=== PATIENT | female | born 1960 | race Two or more races ===

== ENCOUNTER → 2024-12-06 | Outpatient (CLI) | payer BC, SELFPAY ==
--- NOTE | 2024-12-06 16:30 | XR_ITS ---
Examination: CT chest, without intravenous contrast. Sagittal and coronal 2-D reconstructions. Exam date and time: December 06, 2024 1613 hours Comparison June 11, 2024 INDICATIONS: Diagnosis coccidiomycosis with history lung nodules CTDI:vol (mGy) 10.7 DLP: (mGycm) 368 Technique: Multiple 3.0 mm axial sections of the chest to been obtained. Bone and lung density settings are obtained. Sagittal and coronal 2-D reconstructions have been obtained. Low dose protocols were performed. One or more of the following dose reduction techniques were used; automated exposure control, adjustment of the mA and/or KV according to patient size, use of iterative reconstruction technique. Findings: 10 mm calcified left thyroid nodule No thoracic aortic aneurysm dilatation Pulmonary artery segments do not show significant enlargement No paratracheal tracheobronchial or bronchopulmonary adenopathy Calcified scarring in the left upper lobe anteriorly is stable as well as stable tiny subcentimeter bilateral pulmonary nodules No pneumonia or pulmonary edema IMPRESSION: Stable calcified mass in the left upper lobe Stable multiple bilateral pulmonary nodules No pneumonia identified Recommend 6 month follow-up PA lateral chest x-ray
== END | disposition home or self-care (01) ==
LOC: CCTX 15:59
PROVIDERS: PCP Physician Assistant; Referring Provider Internal Medicine Hematology & Oncology; Visit Provider Internal Medicine Hematology & Oncology
DX: R91.8 Other nonspecific abnormal finding of lung field (principal); C50.512 Malignant neoplasm of lower-outer quadrant of left female breast
CPT/HCPCS: 71250

== ENCOUNTER → 2024-12-23 | Outpatient (CLI) | payer BC, SELFPAY ==
--- NOTE | 2024-12-23 11:30 | XR_ITS ---
Examination: Thyroid sonography complete Technique: Grayscale sonographic images thyroid lobes with color flow analysis Exam date and time: December 23, 2024 1150 hrs. Indications: History fine-needle aspiration of isthmus thyroid nodule August 10, 2024 Right thyroid upper pole nodule 5 mm Isthmus nodule 14 mm mid pole left thyroid nodule 7 mm on thyroid sonogram 07/21/2024 Findings: Right thyroid 5.7 cm Multiple nodules, the largest in the midpole 5 mm Isthmus nodule 1.3 x 1.2 cm Left thyroid 4.8 cm Midpole nodule 6 x 5 mm Impression: Thyroid nodules as above
[2024-12-23 13:09] LABS: Basophils % (Auto) 0 % (0-2.5); Eosinophils # (Auto) 0.1 Thou/mm3 (0.0-0.5); Eosinophils % (Auto) 2 % (0-10); Hematocrit 40.1 % (36.0-46.0); Hemoglobin 13.4 g/dL (12.0-16.0); Immature Granulocytes % (Auto) 0 % (0-0); Immature Granulocytes Auto 0.01 Thou/mm3 (0.00-0.00); Lymphocytes # (Auto) 1.3 Thou/mm3 (1.0-4.8); Lymphocytes % (Auto) 24 % (10-50); Mean Corpuscular HGB Conc 33.4 g/dl (31.0-37.0); Mean Corpuscular Hemoglobin 28.9 pg (25.0-35.0); Mean Corpuscular Volume 86 fL (80-100); Monocytes # (Auto) 0.4 Thou/mm3 (0.0-0.8); Monocytes % (Auto) 7 % (0-12); Neutrophils # (Auto) 3.4 Thou/mm3 (1.8-7.7); Neutrophils % (Auto) 66 % (37-80); Nucleated Red Blood Cell % 0 /100 WBC (0); Platelet Count 176 Thou/mm3 (140-440); RDW Standard Deviation 41.2 fL (36.4-46.3); Red Blood Count 4.64 Miln/mm3 (4.00-5.20); White Blood Count 5.2 Thou/mm3 (3.6-11.0)
[2024-12-23 13:34] LABS: Alanine Aminotransferase 31 U/L (10-49); Albumin, Serum 4.5 gm/dL (3.4-4.8); Albumin/Globulin Ratio 1.9 (1.2-2.2); Alkaline Phosphatase 79 U/L (46-116); Anion Gap 9 (7-16); Aspartate Amino Transferase 25 U/L (0-34); BUN/Creatinine Ratio 19 Ratio (12-20); Bilirubin,Total 0.6 mg/dL (0.3-1.2); Blood Urea Nitrogen 13 mg/dL (9-23); Calcium 10.2 mg/dL (8.3-10.6); Calcium (Corrected) 10.2 mg/dL (8.5-10.1); Carbon Dioxide 28.3 mMol/L (20.0-31.0); Chloride 105 mMol/L (98-107); Creatinine (Component) 0.7 mg/dL (0.6-1.3); Globulin 2.4 gm/dL (2.3-3.5); Glucose 99 mg/dL (74-106); Osmolality,Calculated 283 (275-295); Potassium 4.4 mMol/L (3.4-5.1); Sodium 142 mMol/L (136-145); Total Protein 6.9 gm/dL (5.7-8.2); eGFR > 60 See Note
[2024-12-23 14:00] LABS: CA 15-3 8.8 U/mL (<32.4)
== END | disposition home or self-care (01) ==
LOC: CDIM 11:35 → COPL 12:17
PROVIDERS: PCP Physician Assistant; Referring Provider Physician Assistant; Visit Provider Physician Assistant
DX: E04.2 Nontoxic multinodular goiter (principal); C50.512 Malignant neoplasm of lower-outer quadrant of left female breast
CPT/HCPCS: 36415; 76536; 80053; 85025; 86300

== ENCOUNTER → 2025-01-03 | Outpatient (CLI) | payer BC, SELFPAY ==
--- NOTE | 2025-01-03 | XR_ITS ---
Examination: Shoulder,right, 3 views Technique: Shoulder AP internal rotation, AP external rotation, Y view shoulder, 3 views Exam date and time :January 03, 2025 0811 hrs. Indications: Right shoulder pain beginning 6 months ago Comparison: November 10, 2023 Findings: Moderate osteopenia No fracture or shoulder dislocation Mild narrowing glenohumeral joint Mild osteoarthritis acromioclavicular joint Impression: Mild osteoarthritis
== END | disposition home or self-care (01) ==
LOC: CDIM 07:10
PROVIDERS: PCP Family Medicine; Referring Provider Physician Assistant; Visit Provider Physician Assistant
DX: M19.011 Primary osteoarthritis, right shoulder (principal)
CPT/HCPCS: 73030

== ENCOUNTER → 2025-02-16 | Outpatient (CLI) | payer BC, SELFPAY ==
--- NOTE | 2025-02-16 11:00 | XR_ITS ---
Examination: Screening digital mammography, bilateral Computer aided detection 3-D breast Tomosynthesis, bilateral Date and time of exam: February 16, 2025 10:50 AM Compared to mammograms dating to August 28, 2020 Indication: Screening Technique: Nonmagnified MLO, CC views of the breasts to been obtained, reconstructed from 3-D Tomosynthesis images. R2 computer aided detection program utilized for evaluation of suspicious masses and/or abnormal calcifications. 3-D Tomosynthesis images obtained. Findings: The breasts are heterogeneously dense, which may obscure small masses Extensive architectural distortion left breast again noted consistent with patient's history treated left breast cancer, including surgical clips upper outer left breast Focal asymmetry upper right breast on the MLO view is stable Impression: BI-RADS category II: Benign Findings. Recommend 1 year follow-up mammogram. Given the extensive chronic changes, as well as the patient's history of breast sensitivity, 2 months, recommend baseline bilateral breast sonography follow-up
== END | disposition home or self-care (01) ==
LOC: CDIM 10:36
PROVIDERS: Referring Provider Internal Medicine Hematology & Oncology; Visit Provider Internal Medicine Hematology & Oncology
DX: Z12.31 Encounter for screening mammogram for malignant neoplasm of breast (principal); R92.323 Mammographic fibroglandular density, bilateral breasts; R92.1 Mammographic calcification found on diagnostic imaging of breast
CPT/HCPCS: 77063; 77067

== ENCOUNTER → 2025-02-17 | Outpatient (CLI) | payer BC, SELFPAY ==
[2025-02-17 12:23] LABS: Basophils % (Auto) 0 % (0-2.5); Eosinophils # (Auto) 0.1 Thou/mm3 (0.0-0.5); Eosinophils % (Auto) 1 % (0-10); Hematocrit 41.6 % (36.0-46.0); Hemoglobin 13.8 g/dL (12.0-16.0); Immature Granulocytes % (Auto) 1 % (0-0); Immature Granulocytes Auto 0.03 Thou/mm3 (0.00-0.00); Lymphocytes # (Auto) 0.8 Thou/mm3 (1.0-4.8); Lymphocytes % (Auto) 13 % (10-50); Mean Corpuscular HGB Conc 33.2 g/dl (31.0-37.0); Mean Corpuscular Hemoglobin 29.7 pg (25.0-35.0); Mean Corpuscular Volume 90 fL (80-100); Monocytes # (Auto) 0.3 Thou/mm3 (0.0-0.8); Monocytes % (Auto) 5 % (0-12); Neutrophils # (Auto) 5.3 Thou/mm3 (1.8-7.7); Neutrophils % (Auto) 81 % (37-80); Nucleated Red Blood Cell % 0 /100 WBC (0); Platelet Count 184 Thou/mm3 (140-440); RDW Standard Deviation 45.1 fL (36.4-46.3); Red Blood Count 4.64 Miln/mm3 (4.00-5.20); White Blood Count 6.6 Thou/mm3 (3.6-11.0)
[2025-02-17 12:32] LABS: Alanine Aminotransferase 21 U/L (10-49); Albumin, Serum 4.6 gm/dL (3.4-4.8); Albumin/Globulin Ratio 2.1 (1.2-2.2); Alkaline Phosphatase 67 U/L (46-116); Anion Gap 6 (7-16); Aspartate Amino Transferase 18 U/L (0-34); BUN/Creatinine Ratio 16 Ratio (12-20); Bilirubin,Total 0.6 mg/dL (0.3-1.2); Blood Urea Nitrogen 11 mg/dL (9-23); Calcium 9.3 mg/dL (8.3-10.6); Calcium (Corrected) 9.3 mg/dL (8.5-10.1); Carbon Dioxide 26.2 mMol/L (20.0-31.0); Chloride 108 mMol/L (98-107); Creatinine (Component) 0.7 mg/dL (0.6-1.3); Globulin 2.2 gm/dL (2.3-3.5); Glucose 115 mg/dL (74-106); Osmolality,Calculated 279 (275-295); Potassium 4.1 mMol/L (3.4-5.1); Sodium 140 mMol/L (136-145); Total Protein 6.8 gm/dL (5.7-8.2); eGFR > 60 See Note
[2025-02-17 12:33] LABS: Ferritin 150 ng/mL (7.3-270.7); Iron 57 mcg/dL (50-170); Vitamin B12 507 pg/mL (211-911)
[2025-02-17 12:46] LABS: Collection Type, Urine Clean Catch; Squamous Epithelial Cell,Urine 0 /hpf (0-5)
[2025-02-17 13:16] LABS: Bacteria,Urine Rare; Bilirubin,Urine Negative (Negative); Blood,Urine Negative (Negative); Clarity,Urine Clear (Clear/Hazy); Color,Urine Colorless (Lt Yel-Yel); Culture Indicated,Urine Not Indicated; Glucose, Urine Negative (Negative); Ketones,Urine Negative (Negative); Leukocyte Esterase,Urine Negative (Negative); Nitrite,Urine Negative (Negative); PH,Urine 6.5 (5.0-7.0); Protein,Urine Negative (Neg - Trace); RBC,Urine 2 /hpf (0-3); Specific Gravity,Urine 1.007 (1.001-1.035); Urobilinogen,Urine Negative mg/dL (0.0-1.0); WBC,Urine < 1 /hpf (0-5)
[2025-02-18 12:49] LABS: Cocci Serology, IgM Positive (Negative)
[2025-02-18 12:51] LABS: Cocid Sro, CF/ID (UCD) NO CHG* See Sep Rpt
[2025-02-21 19:51] LABS: EBV VCA Ab (IgM) <36.00 U/mL
[2025-02-22 06:22] LABS: EBV Ab Interpretation PAST
== END | disposition home or self-care (01) ==
LOC: COPL 10:58
PROVIDERS: PCP Family Medicine; Referring Provider Physician Assistant; Visit Provider Physician Assistant
DX: R53.83 Other fatigue (principal)
CPT/HCPCS: 36415; 80053; 81001; 82306; 82607; 82728; 83540; 84443; 85025; 86635; 86664; 86665

== ENCOUNTER → 2025-02-24 | Outpatient (CLI) | payer BC, SELFPAY ==
--- NOTE | 2025-02-24 12:30 | XR_ITS ---
Examination: Thyroid sonography complete TECHNIQUE: Grayscale sonographic images thyroid lobes Exam date and time: February 24, 2025 1325 hours INDICATIONS: Thyroid sonogram December 23, 2024 multiple right thyroid nodules, the largest mid pole 5 mm, isthmus nodule 13 mm, midpole left thyroid nodule 6 mm FINDINGS: Right thyroid 5.1 cm Upper pole cyst 5 x 5 mm Midpole nodule 5 x 5 mm Isthmus nodule 14 x 13 mm Left thyroid 5.1 cm Upper pole nodule 7 x 6 mm IMPRESSION: Thyroid nodules as above
--- NOTE | 2025-02-24 13:27 | XR_ITS ---
Examination: Shoulder,right, 3 views Technique: Shoulder AP internal rotation, AP external rotation, Y view shoulder, 3 views Exam date and time :February 24, 2025 1334 hours INDICATIONS: Right shoulder pain beginning 2 months ago. FINDINGS: Prominent osteopenia. Moderate narrowing glenohumeral joint Mild calcific tendinitis No fracture or shoulder dislocation IMPRESSION: Moderate narrowing glenohumeral joint Mild calcific tendinitis
== END | disposition home or self-care (01) ==
LOC: CDIM 13:07
PROVIDERS: PCP Family Medicine; Referring Provider Physician Assistant; Visit Provider Physician Assistant
DX: E04.2 Nontoxic multinodular goiter (principal); M75.31 Calcific tendinitis of right shoulder; M25.811 Other specified joint disorders, right shoulder
CPT/HCPCS: 73030; 76536

== ENCOUNTER → 2025-04-01 | Outpatient (CLI) | payer BC, SELFPAY ==
[2025-04-01 09:25] LABS: Basophils % (Auto) 0 % (0-2.5); Eosinophils # (Auto) 0.1 Thou/mm3 (0.0-0.5); Eosinophils % (Auto) 1 % (0-10); Hemoglobin 13.5 g/dL (12.0-16.0); Immature Granulocytes % (Auto) 0 % (0-0); Immature Granulocytes Auto 0.02 Thou/mm3 (0.00-0.00); Lymphocytes # (Auto) 0.9 Thou/mm3 (1.0-4.8); Lymphocytes % (Auto) 19 % (10-50); Mean Corpuscular HGB Conc 34.6 g/dl (31.0-37.0); Mean Corpuscular Volume 87 fL (80-100); Monocytes # (Auto) 0.3 Thou/mm3 (0.0-0.8); Monocytes % (Auto) 6 % (0-12); Neutrophils # (Auto) 3.7 Thou/mm3 (1.8-7.7); Neutrophils % (Auto) 74 % (37-80); Nucleated Red Blood Cell % 0 /100 WBC (0); Platelet Count 176 Thou/mm3 (140-440); RDW Standard Deviation 43.4 fL (36.4-46.3)
[2025-04-01 09:38] LABS: Alanine Aminotransferase 25 U/L (10-49); Albumin, Serum 4.5 gm/dL (3.4-4.8); Albumin/Globulin Ratio 2.4 (1.2-2.2); Alkaline Phosphatase 57 U/L (46-116); Anion Gap 10 (7-16); Aspartate Amino Transferase 23 U/L (0-34); BUN/Creatinine Ratio 14 Ratio (12-20); Bilirubin,Total 0.6 mg/dL (0.3-1.2); Blood Urea Nitrogen 10 mg/dL (9-23); Calcium 9.5 mg/dL (8.3-10.6); Calcium (Corrected) 9.5 mg/dL (8.5-10.1); Carbon Dioxide 24.1 mMol/L (20.0-31.0); Chloride 104 mMol/L (98-107); Creatinine (Component) 0.7 mg/dL (0.6-1.3); Globulin 1.9 gm/dL (2.3-3.5); Glucose 102 mg/dL (74-106); Osmolality,Calculated 274 (275-295); Potassium 4.1 mMol/L (3.4-5.1); Sodium 138 mMol/L (136-145); Total Protein 6.4 gm/dL (5.7-8.2); eGFR > 60 See Note
[2025-04-01 13:13] LABS: Cocci Serology, IgM Negative (Negative)
[2025-04-02 11:41] LABS: Cocci Serology, IgG Negative (Negative)
== END | disposition home or self-care (01) ==
LOC: COPL 08:19
PROVIDERS: PCP Family Medicine; Referring Provider Physician Assistant; Visit Provider Physician Assistant
DX: B38.2 Pulmonary coccidioidomycosis, unspecified (principal)
CPT/HCPCS: 36415; 80053; 85025; 86331; 86635

== ENCOUNTER → 2025-04-15 | Outpatient (CLI) | payer BC, SELFPAY ==
[2025-04-15 10:58] LABS: Misc Send Out* See Sep Rpt
[2025-04-15 11:21] LABS: Basophils % (Auto) 0 % (0-2.5); Eosinophils # (Auto) 0.1 Thou/mm3 (0.0-0.5); Eosinophils % (Auto) 1 % (0-10); Hematocrit 38.1 % (36.0-46.0); Hemoglobin 12.6 g/dL (12.0-16.0); Immature Granulocytes % (Auto) 0 % (0-0); Immature Granulocytes Auto 0.02 Thou/mm3 (0.00-0.00); Lymphocytes % (Auto) 21 % (10-50); Mean Corpuscular HGB Conc 33.1 g/dl (31.0-37.0); Mean Corpuscular Hemoglobin 30.1 pg (25.0-35.0); Mean Corpuscular Volume 91 fL (80-100); Monocytes # (Auto) 0.3 Thou/mm3 (0.0-0.8); Monocytes % (Auto) 6 % (0-12); Neutrophils # (Auto) 3.5 Thou/mm3 (1.8-7.7); Neutrophils % (Auto) 72 % (37-80); Nucleated Red Blood Cell % 0 /100 WBC (0); Platelet Count 175 Thou/mm3 (140-440); RDW Standard Deviation 45.1 fL (36.4-46.3); Red Blood Count 4.18 Miln/mm3 (4.00-5.20); White Blood Count 4.8 Thou/mm3 (3.6-11.0)
[2025-04-15 11:56] LABS: Alanine Aminotransferase 23 U/L (10-49); Albumin, Serum 4.3 gm/dL (3.4-4.8); Alkaline Phosphatase 60 U/L (46-116); Anion Gap 7 (7-16); Aspartate Amino Transferase 23 U/L (0-34); BUN/Creatinine Ratio 16 Ratio (12-20); Bilirubin,Total 0.5 mg/dL (0.3-1.2); Blood Urea Nitrogen 11 mg/dL (9-23); Calcium 9.2 mg/dL (8.3-10.6); Calcium (Corrected) 9.2 mg/dL (8.5-10.1); Carbon Dioxide 23.8 mMol/L (20.0-31.0); Chloride 106 mMol/L (98-107); Creatinine (Component) 0.7 mg/dL (0.6-1.3); Globulin 2.1 gm/dL (2.3-3.5); Glucose 109 mg/dL (74-106); Osmolality,Calculated 274 (275-295); Potassium 4.2 mMol/L (3.4-5.1); Sodium 137 mMol/L (136-145); Total Protein 6.4 gm/dL (5.7-8.2); eGFR > 60 See Note
[2025-04-15 13:44] LABS: Cocci Serology, IgM Negative (Negative)
[2025-04-16 15:35] LABS: Cocci Serology, IgG Negative (Negative)
[2025-04-21 03:07] LABS: Cardiolipin Ab (IgA) <2.0 APL-U/mL; Cardiolipin Ab (IgG) <2.0 GPL-U/mL; Sjogren's antibody (SS-A) <1.0 NEG AI (<1.0 NEGATIVE); Sm Antibody <1.0 NEG AI (<1.0 NEGATIVE)
[2025-04-21 07:00] LABS: ANA Pattern NUCLEAR, NUCLEOLAR; ANA Screen, IFA POSITIVE (NEGATIVE); CCP Antibody (IgG)* <16 Units; Cardiolipin Ab (IgM) <2.0 MPL-U/mL; Complement Component C3* 137 mg/dL (83-193); Complement Component C4c* 16 mg/dL (15-57); DNA (ds) Antibody* <1 IU/mL; Scl-70 Antibody* <1.0 NEG AI (<1.0 NEGATIVE); Sjogren's Antibody (SS-B) <1.0 NEG AI (<1.0 NEGATIVE); Sm/RNP Antibody <1.0 NEG AI (<1.0 NEGATIVE); Thyroglobulin Antibodies* <1 IU/mL (< OR = 1); Thyroid Peroxidase Antibodies* 1 IU/mL (<9)
== END | disposition home or self-care (01) ==
LOC: COPL 10:29
PROVIDERS: PCP Physician Assistant; Referring Provider Physician Assistant; Visit Provider Physician Assistant
DX: M25.50 Pain in unspecified joint (principal); R53.83 Other fatigue; B38.2 Pulmonary coccidioidomycosis, unspecified
CPT/HCPCS: 36415; 80053; 85025; 86038; 86147; 86160; 86200; 86225; 86235; 86331; 86376; 86635; 86800

== ENCOUNTER → 2025-04-20 | Outpatient (CLI) | payer BC, SELFPAY ==
--- NOTE | 2025-04-20 11:30 | XR_ITS ---
Examination: Breast ultrasound complete, bilateral Date and time of exam: April 20, 2025 1108 hours INDICATIONS: Left breast sensitivity 2 months, personal history left breast cancer lumpectomy 2009, family history breast cancer Technique: Real-time grayscale ultrasonographic imaging bilateral breasts, including all 4 quadrants as well as nipple retroareolar and axillary regions. Findings: Sonographic images right breast No cystic or solid mass Sonographic images left breast 4:00 seroma 2.1 x 0.5 x 1.1 cm IMPRESSION: Left breast 4:00 seroma 2.1 x 0.5 x 1.1 cm
== END | disposition home or self-care (01) ==
LOC: CDIM 10:55
PROVIDERS: PCP Physician Assistant; Referring Provider Internal Medicine Hematology & Oncology; Visit Provider Internal Medicine Hematology & Oncology
DX: N64.89 Other specified disorders of breast (principal); C50.512 Malignant neoplasm of lower-outer quadrant of left female breast
CPT/HCPCS: 76641

== ENCOUNTER → 2025-06-14 | Outpatient (CLI) | payer BC, SELFPAY ==
--- NOTE | 2025-06-14 | XR_ITS ---
Examination: Shoulder bilateral, 6 views Technique: Shoulder AP internal rotation, AP external rotation, Y view each shoulder total 6 views Exam date and time :June 14, 2025 0745 hours INDICATIONS: Bilateral shoulder pain beginning one year ago FINDINGS: Prominent osteopenia Left axillary surgical clips Bilateral moderate narrowing glenohumeral joints Bilateral moderate osteoarthritis acromioclavicular joints No fractures or shoulder dislocations. IMPRESSION: Bilateral moderate narrowing glenohumeral joints Bilateral moderate osteoarthritis acromioclavicular joints
--- NOTE | 2025-06-14 | XR_ITS ---
Examination: Knee bilateral, 6 views Technique: Knee AP, lateral, oblique each knee total 6 views Date and time of exam: June 14, 2025 0745 hours INDICATIONS: Bilateral knee pain beginning one year ago FINDINGS: Mild to moderate right knee tricompartment osteoarthritis, most prominent medial joint space No fracture Total left knee arthroplasty. Satisfactory alignment. No acute fracture No loosening of the prosthetic devices Healed fracture proximal fibular shaft IMPRESSION: Mild to moderate right knee tricompartment osteoarthritis Total left knee arthroplasty with satisfactory alignment
--- NOTE | 2025-06-14 | XR_ITS ---
Examination: Bilateral hands, 6 views. Technique: AP, Oblique, Lateral each hand total 6 views Date and time of exam: June 14, 2025 0745 hours INDICATIONS: Bilateral hand pain beginning one year ago. FINDINGS: Severe osteopenia. Mild diffuse narrowing joints of the wrist and hand bilaterally. No erosive arthritis. No fractures. No avascular necrosis IMPRESSION: Severe osteopenia Mild diffuse narrowing joints of the wrist and hand bilaterally No erosive arthritis
== END | disposition home or self-care (01) ==
LOC: CDIM 06:47
PROVIDERS: PCP Physician Assistant; Referring Provider Nurse Practitioner Family; Visit Provider Nurse Practitioner Family
DX: M25.812 Other specified joint disorders, left shoulder (principal); M25.811 Other specified joint disorders, right shoulder; M19.012 Primary osteoarthritis, left shoulder; M19.011 Primary osteoarthritis, right shoulder; M17.11 Unilateral primary osteoarthritis, right knee; M25.562 Pain in left knee; Z96.652 Presence of left artificial knee joint; M85.842 Other specified disorders of bone density and structure, left hand; M85.841 Other specified disorders of bone density and structure, right hand; M25.842 Other specified joint disorders, left hand; M25.841 Other specified joint disorders, right hand; M25.832 Other specified joint disorders, left wrist; M25.831 Other specified joint disorders, right wrist
CPT/HCPCS: 73030; 73130; 73562

== ENCOUNTER → 2025-07-22 | Outpatient (CLI) | payer BC, SELFPAY ==
--- NOTE | 2025-07-22 11:30 | XR_ITS ---
Examination: Thyroid sonography complete TECHNIQUE: Grayscale sonographic images thyroid lobes Date and time: July 22, 2025, 1120 hours, comparison February 24, 2025 INDICATIONS: Right thyroid midpole nodule 5 mm Isthmus nodule 14 mm upper pole left thyroid nodule 7 mm on thyroid sonogram February 24, 2025 FINDINGS: Right thyroid 5.6 cm Multiple small thyroid nodules, cystic nodule upper pole 7 x 6 mm solid nodule lower pole 5 x 5 mm Isthmus nodule 14 x 10 x 12 mm Left thyroid 5.0 cm Lower pole nodule 6 x 8 mm IMPRESSION: Thyroid nodules as above
== END | disposition home or self-care (01) ==
PROVIDERS: PCP Physician Assistant; Referring Provider Physician Assistant; Visit Provider Physician Assistant
DX: E04.2 Nontoxic multinodular goiter (principal)
CPT/HCPCS: 76536

== ENCOUNTER → 2025-08-18 | Outpatient (CLI) | payer BC, SELFPAY ==
[2025-08-18 14:06] LABS: Basophils # (Auto) 0.0 Thou/mm3 (0.0-0.2); Basophils % (Auto) 1 % (0-2.5); Eosinophils # (Auto) 0.1 Thou/mm3 (0.0-0.5); Eosinophils % (Auto) 2 % (0-10); Hematocrit 39.8 % (36.0-46.0); Hemoglobin 12.9 g/dL (12.0-16.0); Immature Granulocytes Auto 0.01 Thou/mm3 (0.00-0.00); Lymphocytes # (Auto) 1.1 Thou/mm3 (1.0-4.8); Lymphocytes % (Auto) 25 % (10-50); Mean Corpuscular HGB Conc 32.4 g/dl (31.0-37.0); Mean Corpuscular Hemoglobin 29.1 pg (25.0-35.0); Mean Corpuscular Volume 90 fL (80-100); Monocytes # (Auto) 0.3 Thou/mm3 (0.0-0.8); Monocytes % (Auto) 7 % (0-12); Neutrophils # (Auto) 2.8 Thou/mm3 (1.8-7.7); Neutrophils % (Auto) 65 % (37-80); Nucleated Red Blood Cell # 0.00 Thou/mm3 (0.00-0.00); Nucleated Red Blood Cell % 0 /100 WBC (0); Platelet Count 173 Thou/mm3 (140-440); RDW Standard Deviation 43.3 fL (36.4-46.3); Red Blood Count 4.43 Miln/mm3 (4.00-5.20); White Blood Count 4.3 Thou/mm3 (3.6-11.0)
[2025-08-18 14:25] LABS: Alanine Aminotransferase 24 U/L (10-49); Albumin, Serum 4.8 gm/dL (3.4-4.8); Albumin/Globulin Ratio 2.5 (1.2-2.2); Alkaline Phosphatase 53 U/L (46-116); Anion Gap 10 (7-16); Aspartate Amino Transferase < 10 U/L (0-34); BUN/Creatinine Ratio 14 Ratio (12-20); Bilirubin,Total 0.5 mg/dL (0.3-1.2); Blood Urea Nitrogen 11 mg/dL (9-23); Calcium 9.5 mg/dL (8.3-10.6); Calcium (Corrected) 9.5 mg/dL (8.5-10.1); Carbon Dioxide 28.1 mMol/L (20.0-31.0); Chloride 105 mMol/L (98-107); Creatinine (Component) 0.8 mg/dL (0.6-1.3); Globulin 1.9 gm/dL (2.3-3.5); Glucose 104 mg/dL (74-106); Osmolality,Calculated 284 (275-295); Potassium 4.1 mMol/L (3.4-5.1); Sodium 143 mMol/L (136-145); Total Protein 6.7 gm/dL (5.7-8.2); eGFR > 60 See Note
[2025-08-18 14:43] LABS: CA 15-3 9.8 U/mL (<32.4)
== END | disposition home or self-care (01) ==
PROVIDERS: PCP Family Medicine; Referring Provider Internal Medicine Hematology & Oncology; Visit Provider Internal Medicine Hematology & Oncology
DX: C50.512 Malignant neoplasm of lower-outer quadrant of left female breast (principal)
CPT/HCPCS: 36415; 80053; 85025; 86300